=== PATIENT | male | born 1965 | race Caucasian/White ===

== ENCOUNTER → 2017-03-18 | Outpatient (CLI) | payer BC ==
--- NOTE | 2017-03-19 08:48 | DI ---
Indication: ITS.REASON: M54.5 LOW BACK PAIN PROCEDURE: MRI LUMBAR SPINE W/O CONTRAST: Encounter: Initial Comparison: MRI lumbar spine dated February 12, 2016 Technique: Multiplanar multisequence MR imaging of the lumbar spine was performed without contrast. Findings: The same vertebral numbering system is used as the comparison study. 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 No acute fracture identified. Conus medullaris terminates normally at L1. The paraspinal soft tissues are unremarkable. Segmental analysis: L1-L2: No focal disk herniation or central canal stenosis. Mild to moderate bony left foraminal stenosis. No right neural foraminal narrowing. This is unchanged. L2-L3: No central canal stenosis or central disk protrusion. There is a left foraminal and lateral protrusion with a high intensity zone best sagittal image #3. This contributes to mild left neural foraminal narrowing. No significant right foraminal stenosis. L3-L4: Mild annular disk bulge and degenerative facet change contributing to mild central canal stenosis. This is stable. Mild to moderate right and mild left neural foraminal stenosis. This appears less severe than the comparison. L4-L5: Broad-based bulge with superimposed left central protrusion and degenerative facet disease. No central canal stenosis. Foraminal narrowing. No right foraminal stenosis. This is unchanged. L5-S1: Normal Impression: Similar appearance of the lumbar spine although the neural foraminal narrowing at L3-L4 appears less severe on today's study. .
== END ==
LOC: IMA 17:32
PROVIDERS: ATTEND Family Medicine
DX: M48.06 Spinal stenosis, lumbar region (principal); M47.896 Other spondylosis, lumbar region; M51.26 Other intervertebral disc displacement, lumbar region

== ENCOUNTER → 2017-04-08 | Outpatient (CLI) | payer BC ==
[~2017-04-08] MED LIST: IOHEXOL 180 MG/ML 20ml INJECTION ONE; LIDOCAINE 1% (10mg/ml) 5ml VIAL ONE; MethylPREDNISolone ACETATE 40mg/1ml ONE
--- NOTE | 2017-04-08 10:43 | DI ---
Indication:ITS.REASON: M54.5 CHRONIC LOW BACK PAIN; M48.00 SPINAL STENOSIS Procedure:EPIDURAL INJ.SPINE W FLUO CATH LUMBAR EPIDURAL INJECTION: The patient has low back and radicular pain. The patient has had a previous series of lumbar epidural injections at a different facility that resulted in moderate relief. The details of the procedure, including the benefits, risks, and alternatives were explained to the patient. All of their questions were answered. They stated that they understood and wished to proceed. Informed consent was then obtained. A pre-procedural timeout was performed to confirm the correct patient and procedure. Utilizing aseptic technique, local lidocaine anesthetic, and fluoroscopic guidance throughout, a 22-gauge spinal needle was directed into the lumbar epidural space via an interlaminar approach at the L4-5 level. Contrast was injected to assure proper positioning of the needle tip. A fluoroscopic image was then taken and archived. Subsequently, 120 mg Depo-Medrol was injected into the epidural space. The patient tolerated the procedure well. IMPRESSION: Successful lumbar epidural steroid injection. Fluoroscopy dose: 11.75 mGy (Cumulative air kerma) Jan Mcnair RPA/ARIANA performed this under my personal supervision. .
== END ==
LOC: IMA 08:34
PROVIDERS: ATTEND Family Medicine
DX: M48.00 Spinal stenosis, site unspecified (principal); M54.5 Low back pain
CPT/HCPCS: 62323; J1030; Q9965